=== PATIENT | female | born 1955 | race Caucasian/White ===

== ENCOUNTER 2018-10-13 15:33 | Emergency (ER) | payer OTHER ==
--- NOTE | 2018-10-13 17:05 | RAD REPORT ---
EXAM DESCRIPTION: RAD - Chest Single View - 10/13/2018 4:59 pm CLINICAL HISTORY: CHEST PAIN Chest pain. COMPARISON: CHEST SINGLE VIEW dated 07/31/2011; CHEST PA AND LAT 2 VIEW dated 05/03/2004 FINDINGS: Portable technique limits examination quality. The lungs are grossly clear. The heart is normal in size. No displaced fractures. IMPRESSION: No acute intrathoracic process suspected.
--- NOTE | 2018-10-13 17:06 | RAD REPORT ---
EXAM DESCRIPTION: CT - Head Brain Wo Cont - 10/13/2018 4:59 pm CLINICAL HISTORY: PAIN Severe headache, drowsiness COMPARISON: No comparisons TECHNIQUE: All CT scans are performed using dose optimization technique as appropriate and may inclu de automated exposure control or mA/KV adjustment according to patient size. FINDINGS: No intracranial hemorrhage, hydrocephalus or extra-axial fluid collection.No areas of brai n edema or evidence of midline shift. The paranasal sinuses and mastoids are clear. The calvarium is intact. IMPRESSION: No acute intracranial abnormality.
[2018-10-13] MEDS ORDERED: MECLIZINE HCL 12.5 MG TAB ONE (17:36)
[2018-10-13] MEDS ORDERED: NA CHLORIDE 0.9% 1,000 ML ONE (17:37)
[2018-10-13] MEDS ORDERED: ONDANSETRON 4 MG/2 ML VIAL ONE (17:37)
[2018-10-13 17:53] LABS: Absolute Lymphocytes (CBC) 1.7 K/uL (0.7-4.9); Absolute Monocytes 0.4 K/uL (0.1-1.3); Absolute Neutrophil 6.4 K/uL (1.8-8.0); Basophils % 1.2 % (0-1.3); Eosinophils % 0.3 % (0-4.4); Hematocrit 44.1 % (36.0-45.0); Lymphocytes % 19.7 % (15.3-44.8); MCH 30.2 pg (27.0-35.0); MCV 89.5 fL (80-100); MPV 8.5 fL (7.6-11.3); Monocytes % 5.1 % (3.3-12.3); RBC Red Blood Cell Count 4.93 M/uL (3.86-4.86)
[2018-10-13 18:11] LABS: ALT/SGPT 53 U/L (12-78); AST/SGOT 25 U/L (15-37); Albumin 3.6 g/dL (3.4-5.0); Alkaline Phosphatase 72 U/L (45-117); BUN Blood Urea Nitrogen 17 mg/dL (7-18); Bicarbonate 29 mmol/L (21-32); Bilirubin Direct 0.1 mg/dL (0-0.2); Bilirubin Total 0.3 mg/dL (0.2-1.0); Glucose Level 204 mg/dL (74-106); Lipase 177 U/L (73-393); Magnesium 1.9 mg/dL (1.8-2.4); NT PRO-BNP 97 pg/mL (<125); Potassium 4.8 mmol/L (3.5-5.1); Protein, Total 6.7 g/dL (6.4-8.2); Sodium Level 149 mmol/L (136-145); Troponin (Emerg Dept Use Only) < 0.02 ng/mL (0.0-0.045)
--- NOTE | 2018-10-13 19:23 | ER ---
Nurse's Notes [facility] Name: Michelle Lares Age: 63 yrs Sex: Female : 1955 Arrival Date: 10/13/2018 Time: 15:34 Bed 15 Private MD: Abhilash Roger T Diagnosis: Vomiting, unspecified Presentation: 10/13 15:53 Presenting complaint: Child states: Spider bite 2 weeks ago, urgent care lanced it and jl7 gave antibiotics. Dr. Roger prescribed more antibiotics a week ago and she took them for 4 days but stopped because they were making her vomit. Since then she has been nauseous and had some blurry vision that got worse today. Transition of care: patient was not received from another setting of care. Onset of symptoms was October 13, 2018. Risk Assessment: Do you want to hurt yourself or someone else? Patient reports no desire to harm self or others. Initial Sepsis Screen: Does the patient meet any 2 criteria? No. Patient's initial sepsis screen is negative. Does the patient have a suspected source of infection? No. Patient's initial sepsis screen is negative. Care prior to arrival: None. 15:53 Method Of Arrival: Ambulatory [facility] 15:53 Acuity: OSCAR 3 [facility] Triage Assessment: 15:59 General: Appears uncomfortable, ill, Behavior is calm, cooperative, appropriate for [facility] age. Pain: Denies pain. Neuro: Level of Consciousness is awake, alert, obeys commands, Oriented to person, place, time, situation. Cardiovascular: Patient's skin is warm and dry. Respiratory: Airway is patent Respiratory effort is even, unlabored, Respiratory pattern is regular, symmetrical. GI: Reports nausea, vomiting, Patient currently denies diarrhea. Derm: Skin is pink, warm \\T\\ dry. Historical: - Allergies: 15:59 No Known Allergies; jl7 - Home Meds: 15:59 losartan 50 mg Oral tab 1 tab [Active]; Invokana 300 mg Oral tab 1 tab once daily 7 [Active]; metformin 750 mg Oral Tb24 1 tab [Active]; Victoza 3-Jimbo subcutaneous [Active]; fenofibrate 54 mg Oral tab 1 tab once daily [Active]; duloxetine 60 mg Oral cpDR 1 cap [Active]; - PMHx: 15:59 Diabetes - NIDDM; jl7 - PSHx: 15:59 ; jl7 - Immunization history:: Adult Immunizations not up to date. - Social history:: Smoking status: Patient/guardian denies using tobacco, Patient uses Patient/guardian denies using alcohol, street drugs, The patient lives with family. - Ebola Screening: : No symptoms or risks identified at this time. - Family history:: not pertinent, pertinent for. - Hospitalizations: : No recent hospitalization is reported. Screenin:10 Abuse screen: Denies threats or abuse. Denies injuries from another. Nutritional ls4 screening: No deficits noted. Tuberculosis screening: No symptoms or risk factors identified. Fall Risk No fall in past 12 months (0 pts). No secondary diagnosis (0 pts). No IV (0 pts). Ambulatory Aid- None/Bed Rest/Nurse Assist (0 pts). Gait- Normal/Bed Rest/Wheelchair (0 pts) Mental Status- Oriented to own ability (0 pts). Total Flores Fall Scale indicates No Risk (0-24 pts). Sepsis Screening: . Infection: Patient has suspected or documented infection. Patient is currently on antibiotics that were not prescribed as prophylaxis. SIRS - Systemic Inflammatory Response Syndrome: 2 or more indicates positive screen: Patient has a negative screen for severe sepsis based on SIRS criteria. Exposure risk/Travel Screening: None identified. Assessment: 17:03 General: Appears uncomfortable, well groomed, Behavior is calm, cooperative. Pain: ls4 Denies pain. Neuro: No deficits noted. Cardiovascular: Denies chest pain, diaphoresis, fatigue, lightheadedness. Respiratory: No deficits noted. Airway is patent Respiratory effort is even, unlabored, Respiratory pattern is regular, Breath sounds are clear bilaterally. EENT:. Derm: Reports had two "bites" took antibiotics. both lesions are dime size and have no signs or symptoms of infection. no redness, no swelling or pain . Musculoskeletal: No deficits noted. 18:04 Reassessment: Patient states feeling better. Patient states symptoms have improved. ls4 19:00 Reassessment: Patient appears in no apparent distress at this time. Patient and/or jb4 family updated on plan of care and expected duration. Pain level reassessed. Patient is alert, oriented x 3, equal unlabored respirations, skin warm/dry/pink. Discussed D/c, F/u with pt, denies questions or concerns. Vital Signs: 15:59 BP 155 / 85; Pulse 87; Resp 16 S; Temp 99(O); Pulse Ox 100% on R/A; Weight 74.84 kg jl7 (R); Height 5 ft. 1 in. (154.94 cm) (R); Pain 0/10; 17:07 BP 151 / 51; Pulse 78; Resp 16; Pulse Ox 99% on R/A; Pain 0/10; ls4 18:23 BP 158 / 59; Pulse 76; Resp 16; Pulse Ox 99% ; ls4 18:38 BP 152 / 62; Pulse 77; Resp 16; Pulse Ox 99% ; ls4 19:00 BP 137 / 76; Pulse 77; Resp 18; Pulse Ox 100% on R/A; jb4 15:59 Body Mass Index 31.18 (74.84 kg, 154.94 cm) jl7 ED Course: 15:34 Patient arrived in ED. sb2 15:35 Abhilash Roger MD is Private Physician. sb2 15:56 Triage completed. jl7 15:59 Arm band placed on right wrist. jl7 16:04 Luke Marques MD is Attending Physician. ma2 16:09 Shahrzad Pro, IVETH is Primary Nurse. ls4 16:11 Patient has correct armband on for positive identification. Placed in gown. Bed in low ls4 position. Call light in reach. Side rails up X2. Pulse ox on. NIBP on. Warm blanket given. Pillow given. 16:12 No provider procedures requiring assistance completed. ls4 16:[address] kw1 16:58 CT completed. Patient tolerated procedure well. Patient moved back from CT. mw3 16:59 Magnesium Sent. ls4 16:59 PT-INR Sent. ls4 16:59 Troponin (emerg Dept Use Only) Sent. ls4 16:59 XRAY Chest (1 view) Sent. ls4 16:59 CT Head Brain wo Cont Sent. ls4 16:59 Basic Metabolic Panel Sent. ls4 16:59 CBC with Diff Sent. ls4 17:00 Creatinine for Radiology Sent. ls4 17:01 Resting quietly. ls4 17:01 Hepatic Function Sent. ls4 17:01 Lipase Sent. ls4 17:01 Initial lab(s) drawn, by tn, sent to lab. Inserted saline lock: 20 gauge in left ls4 antecubital area, using aseptic technique. Blood collected. 17:25 EKG done, by civil cadd technician. reviewed by Luke Marques MD. sm3 17:37 NT PRO-BNP Sent. ls4 19:30 IV discontinued, intact, bleeding controlled. jb4 Administered Medications: 17:10 Drug: NS 0.9% 1000 ml Route: IV; Rate: 1 bolus; Site: left antecubital; ls4 18:19 Follow up: IV Status: Completed infusion; IV Intake: 1000ml ls4 17:10 Drug: Meclizine 50 mg Route: PO; ls4 18:18 Follow up: Response: No adverse reaction ls4 17:10 Drug: Zofran 4 mg Route: IVP; Site: left antecubital; ls4 17:40 Follow up: Response: No adverse reaction; Marked relief of symptoms ls4 Intake: 18:19 IV: 1000ml; Total: 1000ml. ls4 Outcome: 19:10 Discharge ordered by . ma2 19:30 Discharged to home ambulatory, with family. jb4 19:30 Condition: stable 19:30 Discharge instructions given to patient, family, Instructed on discharge instructions, follow up and referral plans. medication usage, Demonstrated understanding of instructions, follow-up care, medications, Prescriptions given X 2. 19:38 Patient left the ED. jb4 Signatures: Cristofer Hopson, IVETH RN jb4 Ekta Camara RN RN jl7 Velvet Alexander kw1 Luke Marques MD MD ut2 Estrella Spivey 2 Carly Spicer 3 Edwina Lind 3 Shahrzad Pro RN RN ls4 Corrections: (The following items were deleted from the chart) 21:58 19:00 IV discontinued, intact, bleeding controlled, jb4 jb4
--- NOTE | 2018-10-13 19:23 | EDPHYS ---
Physician Documentation [facility] Name: Michelle Lares Age: 63 yrs Sex: Female : 1955 Arrival Date: 10/13/2018 Time: 15:34 Bed 15 Private MD: Abhilash Roger T ED Physician Luke Marques HPI: 10/13 16:53 This 63 yrs old Female presents to ER via Ambulatory with complaints of POSS ma2 DEHYDRATION. 16:53 The patient presents to the emergency department with nausea, vomiting. Onset: The ma2 symptoms/episode began/occurred gradually, 10 week(s) ago. Possible causes: unknown. Associated signs and symptoms: Pertinent negatives:. Severity of symptoms: At their worst the symptoms were moderate in the emergency department the symptoms are unchanged. The patient has not experienced similar symptoms in the past. Historical: - Allergies: 15:59 No Known Allergies; jl7 - Home Meds: 15:59 losartan 50 mg Oral tab 1 tab [Active]; Invokana 300 mg Oral tab 1 tab once daily jl7 [Active]; metformin 750 mg Oral Tb24 1 tab [Active]; Victoza 3-Jimbo subcutaneous [Active]; fenofibrate 54 mg Oral tab 1 tab once daily [Active]; duloxetine 60 mg Oral cpDR 1 cap [Active]; - PMHx: 15:59 Diabetes - NIDDM; jl7 - PSHx: 15:59 ; jl7 - Immunization history:: Adult Immunizations not up to date. - Social history:: Smoking status: Patient/guardian denies using tobacco, Patient uses Patient/guardian denies using alcohol, street drugs, The patient lives with family. - Ebola Screening: : No symptoms or risks identified at this time. - Family history:: not pertinent, pertinent for. - Hospitalizations: : No recent hospitalization is reported. ROS: 16:53 Constitutional: Negative for fever, chills, and weight loss, ENT: Negative for injury, ma2 pain, and discharge, Cardiovascular: Negative for chest pain, palpitations, and edema, Respiratory: Negative for shortness of breath, cough, wheezing, and pleuritic chest pain, Abdomen/GI: Negative for abdominal pain, nausea, diarrhea, and constipation. 16:53 Abdomen/GI: Positive for nausea and vomiting. 16:53 All other systems are negative. Exam: 16:53 Constitutional: This is a well developed, well nourished patient who is awake, alert, ma2 and in no acute distress. Chest/axilla: Normal chest wall appearance and motion. Nontender with no deformity. No lesions are appreciated. Cardiovascular: Regular rate and rhythm with a normal S1 and S2. No gallops, murmurs, or rubs. Normal PMI, no JVD. No pulse deficits. Respiratory: Lungs have equal breath sounds bilaterally, clear to auscultation and percussion. No rales, rhonchi or wheezes noted. No increased work of breathing, no retractions or nasal flaring. Abdomen/GI: Soft, non-tender, with normal bowel sounds. No distension or tympany. No guarding or rebound. No evidence of tenderness throughout. MS/ Extremity: Pulses equal, no cyanosis. Neurovascular intact. Full, normal range of motion. Neuro: Awake and alert, GCS 15, oriented to person, place, time, and situation. Cranial nerves II-XII grossly intact. Motor strength 5/5 in all extremities. Sensory grossly intact. Cerebellar exam normal. Normal gait. Vital Signs: 15:59 BP 155 / 85; Pulse 87; Resp 16 S; Temp 99(O); Pulse Ox 100% on R/A; Weight 74.84 kg jl7 (R); Height 5 ft. 1 in. (154.94 cm) (R); Pain 0/10; 17:07 BP 151 / 51; Pulse 78; Resp 16; Pulse Ox 99% on R/A; Pain 0/10; ls4 18:23 BP 158 / 59; Pulse 76; Resp 16; Pulse Ox 99% ; ls4 18:38 BP 152 / 62; Pulse 77; Resp 16; Pulse Ox 99% ; ls4 19:00 BP 137 / 76; Pulse 77; Resp 18; Pulse Ox 100% on R/A; jb4 15:59 Body Mass Index 31.18 (74.84 kg, 154.94 cm) jl7 MDM: 16:04 Patient medically screened. ma2 16:53 Differential diagnosis: Nonspecific abd pain, pancreatitis, viral gastroenteritis, ma2 gastroenteritis. 19:10 Data reviewed: vital signs, nurses notes, EMS record, residential records, lab test ma2 result(s), radiologic studies. Counseling: I had a detailed discussion with the patient and/or guardian regarding: the historical points, exam findings, and any diagnostic results supporting the discharge/admit diagnosis, the presence of at least one elevated blood pressure reading (>120/80) during this emergency department visit, the need for outpatient follow up. Response to treatment: the patient's symptoms have resolved after treatment. 10/13 16:40 Order name: Basic Metabolic Panel [facility] 10/13 16:40 Order name: CBC with Diff [facility] 10/13 16:40 Order name: Creatinine for Radiology [facility] 10/13 16:40 Order name: Hepatic Function [facility] 10/13 16:40 Order name: Lipase [facility] 10/13 16:40 Order name: Magnesium [facility] 10/13 16:40 Order name: NT PRO-BNP [facility] 10/13 16:40 Order name: PT-INR [facility] 10/13 16:40 Order name: Troponin (emerg Dept Use Only) [facility] 10/13 17:55 Order name: CBC with Automated Diff; Complete Time: 18:00 EDID 10/13 17:57 Order name: Protime (+INR); Complete Time: 18:00 EDID 10/13 18:12 Order name: Basic Metabolic Panel; Complete Time: 18:41 EDMS 10/13 18:12 Order name: Liver (Hepatic) Function; Complete Time: 18:41 EDMS 10/13 18:12 Order name: Troponin (Emerg Dept Use Only); Complete Time: 18:41 EDMS 10/13 16:40 Order name: IV Saline Lock; Complete Time: 17:01 [facility] 10/13 16:40 Order name: Labs collected and sent; Complete Time: 17:37 [facility] 10/13 16:40 Order name: CT Head Brain wo Cont [facility] 10/13 16:40 Order name: XRAY Chest (1 view) [facility] 10/13 16:40 Order name: EKG; Complete Time: 16:41 [facility] 10/13 16:40 Order name: Cardiac monitoring; Complete Time: 16:48 [facility] 10/13 16:40 Order name: EKG - Nurse/Tech; Complete Time: 18:18 [facility] 10/13 17:06 Order name: RAD; Complete Time: 18:00 EDMS 10/13 17:07 Order name: CT; Complete Time: 18:00 EDID 10/13 18:12 Order name: NT PRO-BNP; Complete Time: 18:41 EDID 10/13 18:12 Order name: Magnesium; Complete Time: 18:41 EDID 10/13 18:12 Order name: Lipase; Complete Time: 18:41 EDID 10/13 18:17 Order name: Creatinine (Radiology Only); Complete Time: 18:41 EDID 10/13 16:40 Order name: O2 Per Protocol; Complete Time: 16:48 ky2 10/13 16:40 Order name: O2 Sat Monitoring; Complete Time: 16:48 [facility] 10/13 17:15 Order name: Labs - recollect needed; Complete Time: 17:25 bd Administered Medications: 17:10 Drug: NS 0.9% 1000 ml Route: IV; Rate: 1 bolus; Site: left antecubital; ls4 18:19 Follow up: IV Status: Completed infusion; IV Intake: 1000ml ls4 17:10 Drug: Meclizine 50 mg Route: PO; ls4 18:18 Follow up: Response: No adverse reaction ls4 17:10 Drug: Zofran 4 mg Route: IVP; Site: left antecubital; ls4 17:40 Follow up: Response: No adverse reaction; Marked relief of symptoms ls4 Disposition: 10/13/18 19:10 Discharged to Home. Impression: Vomiting, unspecified. - Condition is Stable. - Discharge Instructions: Benign Positional Vertigo. - Prescriptions for Meclizine 25 mg Oral Tablet - take 1 tablet by ORAL route every 8 hours As needed; 30 tablet. Zofran 4 mg Oral Tablet - take 1 tablet by ORAL route every 12 hours As needed; 6 tablet. - Medication Reconciliation Form, Thank You Letter, Antibiotic Education, Prescription Opioid Use form. - Follow up: Private Physician; When: Tomorrow; Reason: Continuance of care. Signatures: Dispatcher [employer] EDID RosalinatoriRocio James, RN RN jb4 Ekta Camara RN RN jl7 Luke Marques MD MD ma2 Shahrzad Pro RN RN ls4 Corrections: (The following items were deleted from the chart) 19:38 19:10 10/13/2018 19:10 Discharged to Home. Impression: Vomiting, unspecified. Condition jb4 is Stable. Forms are Medication Reconciliation Form, Thank You Letter, Antibiotic Education, Prescription Opioid Use. Follow up: Private Physician; When: Tomorrow; Reason: Continuance of care. ma2
--- NOTE | 2018-10-14 05:52 | EKG ---
Test Date: 2018-10-13 Test Time: 17:16:26 Aviculturist: VICTOR M MEASUREMENT RESULTS: Intervals: Rate: 78 NV: 146 QRSD: 80 QT: 386 QTc: 440 [place]: P: 40 NV: 146 QRS: 32 T: 25 INTERPRETIVE STATEMENTS: Normal sinus rhythm Nonspecific T wave abnormality Abnormal ECG Compared to ECG 06/04/2017 11:27:55 T-wave abnormality now present Electronically Signed On 10-14-18 05:51:41 ROLLER PAINTER by Nick Claire
== END 2018-10-13 19:38 | disposition home or self-care (01) ==
LOC: ER 15:33
DX: R11.2 Nausea with vomiting, unspecified (principal); E11.9 Type 2 diabetes mellitus without complications
CPT/HCPCS: 36415; 70450; 71045; 80048; 80076; 83690; 83735; 83880; 84484; 85025; 85610; 93005; 96361; 96374; 99285; J2405; J7030

== ENCOUNTER 2022-05-30 17:46 | Emergency (ER) | payer OTHER ==
[2022-05-30] MEDS ORDERED: ONDANSETRON 4 MG/2 ML VIAL ONE (19:55)
[2022-05-30] MEDS ORDERED: NA CHLORIDE 0.9% 1,000 ML ONE (19:56)
[2022-05-30] MEDS ORDERED: FAMOTIDINE 20 MG/2 ML VIAL IV ONE (19:56)
[2022-05-30 20:30] LABS: Absolute Lymphocytes (CBC) 0.6 K/uL (0.7-4.9); Hematocrit 46.2 % (36.0-45.0); Lymphocytes % 10.9 % (15.3-44.8); MCV 85.1 fL (80-100); MPV 8.6 fL (7.6-11.3); RBC Red Blood Cell Count 5.43 M/uL (3.86-4.86)
[2022-05-30 21:15] LABS: Albumin 3.1 g/dL (3.4-5.0); Bilirubin Total 1.1 mg/dL (0.2-1.0); Protein, Total 7.6 g/dL (6.4-8.2)
--- NOTE | 2022-05-31 00:17 | ER ---
Nurse's Notes [facility] Name: Michelle Lares Age: 66 yrs Sex: Female : 1955 Arrival Date: 05/30/2022 Time: 17:49 Bed 17 Private MD: Diagnosis: Nausea with vomiting, unspecified;Diarrhea, unspecified Presentation: 05/30 18:49 Chief complaint: Patient states: Tested positive for COVID on May 21. Pt reports ss that since then she has had ongoing N/V/D and feels generally weak. Coronavirus screen: Client presents with at least one sign or symptom that may indicate coronavirus-19. Ebola Screen: Patient denies exposure to infectious person. Patient denies travel to an Ebola-affected area in the 21 days before illness onset. Initial Sepsis Screen: Does the patient meet any 2 criteria? No. Patient's initial sepsis screen is negative. Does the patient have a suspected source of infection? No. Patient's initial sepsis screen is negative. Risk Assessment: Do you want to hurt yourself or someone else? Patient reports no desire to harm self or others. Onset of symptoms was May 21, 2022. 18:49 Method Of Arrival: Wheelchair ss 18:49 Acuity: OSCAR 3 ss Historical: - Allergies: 18:51 No Known Allergies; ss - PMHx: 18:51 Diabetes - NIDDM; ss - Immunization history:: Client reports having NOT received the Covid vaccine. - Social history:: Smoking status: Patient denies any tobacco usage or history of. Screenin/08 00:35 Abuse screen: Denies threats or abuse. Denies injuries from another. Nutritional sm5 screening: No deficits noted. Tuberculosis screening: No symptoms or risk factors identified. Fall Risk None identified. Assessment: 05/30 19:30 General: Appears uncomfortable, Behavior is cooperative. Pain: Complains of pain in sm5 abdomen. Neuro: Level of Consciousness is awake, alert, obeys commands, Oriented to person, place, time, situation. Cardiovascular: Capillary refill < 3 seconds Patient's skin is warm and dry. Respiratory: Airway is patent Trachea midline Respiratory effort is even, unlabored. GI: Abdomen is flat, non-distended, Reports nausea, vomiting. 20:30 Reassessment: No changes from previously documented assessment. Patient and/or family sm5 updated on plan of care and expected duration. Pain level reassessed. 21:30 Reassessment: No changes from previously documented assessment. Patient is alert, sm5 oriented x 3, equal unlabored respirations, skin warm/dry/pink. 23:30 Reassessment: No changes from previously documented assessment. sm5 05/31 00:34 Reassessment: pt given water and gatorade to drink, pt able to tolerate fluids, denies sm5 nausea/vomiting. Vital Signs: 05/30 18:49 BP 136 / 69; Pulse 96; Resp 16; Temp 98.0(TE); Pulse Ox 97% on R/A; Weight 60.78 kg; ss Height 5 ft. 0 in. (152.40 cm); Pain 0/10; 05/31 00:35 BP 131 / 65; Pulse 88; Resp 17; Pulse Ox 99% on R/A; sm5 05/30 18:49 Body Mass Index 26.17 (60.78 kg, 152.40 cm) ED Course: 05/30 17:49 Patient arrived in ED. rg4 17:52 Bishop Jha PA is PHCP. [facility] 17:52 Chris Min DO is Attending Physician. m 18:51 Triage completed. ss 18:51 Arm band placed on right wrist. ss 19:16 Florina Hayden, IVETH is Primary Nurse. sm5 19:41 Inserted saline lock: 24 gauge in right forearm, using aseptic technique. Blood ds4 collected. Missed attempt(s): 24 gauge in right forearm. 20:16 Initial lab(s) drawn, by tn, sent to lab. Inserted saline lock: 20 gauge in right tw5 antecubital area, using aseptic technique. Blood collected. Ultrasound guided IV. 20:25 PHCP role handed off by Bishop Jha PA cp 20:25 Alfredo Salazar PA is PHCP. cp 22:11 CT Abd/Pelvis - IV Contrast Only In Process Unspecified. EDMS 05/31 00:35 Patient has correct armband on for positive identification. Bed in low position. Call sm5 light in reach. Side rails up X2. 00:35 No provider procedures requiring assistance completed. IV discontinued, intact, sm5 bleeding controlled, No redness/swelling at site. Pressure dressing applied. Administered Medications: 05/30 20:30 Drug: NS 0.9% 1000 ml Route: IV; Rate: 1 bolus; Site: right antecubital; 5 21:30 Follow up: IV Status: Completed infusion; IV Intake: 1000ml 5 20:30 Drug: Pepcid (famotidine) 20 mg Route: IVP; Site: right antecubital; sm5 05/31 00:36 Follow up: Response: No adverse reaction sm5 05/30 20:30 Drug: Zofran (Ondansetron) 4 mg Route: IVP; Site: right antecubital; sm5 05/31 00:36 Follow up: Response: Nausea is decreased sm5 Medication: 00:35 VIS not applicable for this client. sm5 Intake: 05/30 21:30 IV: 1000ml; Total: 1000ml. 5 Outcome: 05/31 00:17 Discharge ordered by MD. cp 00:35 Discharged to home via wheelchair, with family. 5 00:35 Condition: stable 00:35 Discharge instructions given to patient, family, Instructed on discharge instructions, follow up and referral plans. medication usage, Demonstrated understanding of instructions, follow-up care, medications, Prescriptions given X 2. 00:36 Patient left the ED. 5 Signatures: Dispatcher [employer] EDMS Bishop Jha PA PA jmm Smirch, Shelby, IVETH RN Rudy García ds4 Alfredo Salazar PA PA cp Garcia, Rubi rg4 Caitlyn Man tw5 Florina Hayden RN RN 5
--- NOTE | 2022-05-31 00:18 | EDPHYS ---
Physician Documentation [facility] Name: Michelle Lares Age: 66 yrs Sex: Female : 1955 Arrival Date: 05/30/2022 Time: 17:49 Bed 17 Private MD: ED Physician Chris Min HPI: 05/30 18:05 This 66 yrs old Female presents to ER via Wheelchair with complaints of Dehydration, jmm Vomiting/Diarrhea. 20:15 The patient presents to the emergency department with nausea, vomiting. Onset: The jmm symptoms/episode began/occurred gradually, 2 week(s) ago. Possible causes: unknown. The symptoms are aggravated by nothing. The symptoms are alleviated by nothing. This is a 66 year old female with a history fo dm, that presents to the ED with complaints of ongoing vomiting, diarrhea beginning after being diagnosed with covid. Patient received iv fluids yesterday with no relief today. . Historical: - Allergies: 18:51 No Known Allergies; ss - PMHx: 18:51 Diabetes - NIDDM; ss - Immunization history:: Client reports having NOT received the Covid vaccine. - Social history:: Smoking status: Patient denies any tobacco usage or history of. ROS: 20:15 Constitutional: Negative for fever, chills, and weight loss, Cardiovascular: Negative jmm for chest pain, palpitations, and edema, Respiratory: Negative for shortness of breath, cough, wheezing, and pleuritic chest pain. 20:15 Abdomen/GI: Positive for nausea and vomiting, vomiting, diarrhea. 20:15 Neuro: Positive for weakness. Exam: 20:15 Constitutional: This is a well developed, well nourished patient who is awake, alert, jmm and in no acute distress. Head/Face: atraumatic. Eyes: EOMI, no conjunctival erythema appreciated ENT: Moist Mucus Membranes Neck: Trachea midline, Supple Chest/axilla: Normal chest wall appearance and motion. Cardiovascular: Regular rate and rhythm. No edema appreciated Respiratory: Normal respirations, no respiratory distress appreciated 20:15 Back: Normal ROM Skin: General appearance color normal MS/ Extremity: Moves all extremities, no obvious deformities appreciated, no edema noted to the lower extremities Neuro: Awake and alert Psych: Behavior is normal, Mood is normal, Patient is cooperative and pleasant 20:15 Abdomen/GI: Inspection: abdomen appears normal, Bowel sounds: normal, Palpation: abdomen is soft and non-tender, in all quadrants. Vital Signs: 18:49 BP 136 / 69; Pulse 96; Resp 16; Temp 98.0(TE); Pulse Ox 97% on R/A; Weight 60.78 kg; ss Height 5 ft. 0 in. (152.40 cm); Pain 0/10; 05/31 00:35 BP 131 / 65; Pulse 88; Resp 17; Pulse Ox 99% on R/A; sm5 05/30 18:49 Body Mass Index 26.17 (60.78 kg, 152.40 cm) ss MDM: 05/30 18:05 Patient medically screened. [facility] 05/31 00:10 Data reviewed: vital signs, nurses notes, lab test result(s), radiologic studies, CT cp scan. 00:10 Differential diagnosis: Nonspecific abd pain, gastritis, cholecystitis, pancreatitis, cp appendicitis, diverticulitis, viral gastroenteritis, gastroenteritis. Counseling: I had a detailed discussion with the patient and/or guardian regarding: the historical points, exam findings, and any diagnostic results supporting the discharge/admit diagnosis, lab results, radiology results, the need for outpatient follow up, a family practitioner, to return to the emergency department if symptoms worsen or persist or if there are any questions or concerns that arise at home. Response to treatment: the patient's symptoms have markedly improved after treatment, VSS. Nausea markedly improved and vomiting resolved. Will discharge to home for continued monitoring. 05/30 18:05 Order name: CBC with Diff; Complete Time: 21:18 [facility] 05/30 21:18 Interpretation: Normal except: RBC 5.43; HGB 15.7; HCT 46.2; MCV 85.1; CORNELIO% 77.7; LYM% cp 10.9; LYMA 0.6. 05/30 18:05 Order name: CMP; Complete Time: 21:18 [facility] 05/30 21:18 Interpretation: Normal except: GLUC 156. cp 05/30 18:05 Order name: Lipase; Complete Time: 21:18 [facility] 05/30 20:18 Order name: CT Abd/Pelvis - IV Contrast Only [facility] 05/30 18:05 Order name: IV Saline Lock; Complete Time: 19:41 [facility] 05/30 18:05 Order name: Labs collected and sent; Complete Time: 21:20 [facility] 05/30 23:59 Order name: PO challenge; Complete Time: 00:11 cp Administered Medications: 05/30 20:30 Drug: NS 0.9% 1000 ml Route: IV; Rate: 1 bolus; Site: right antecubital; [facility] 21:30 Follow up: IV Status: Completed infusion; IV Intake: 1000ml [facility] 20:30 Drug: Pepcid (famotidine) 20 mg Route: IVP; Site: right antecubital; 5 05/31 00:36 Follow up: Response: No adverse reaction [facility] 05/30 20:30 Drug: Zofran (Ondansetron) 4 mg Route: IVP; Site: right antecubital; [facility] 05/31 00:36 Follow up: Response: Nausea is decreased [facility] Disposition: 14:10 Co-signature as Attending Physician, Chris Min DO I was immediately available on-site ms3 in the Emergency Department for consultation in the care of the patient.. Disposition Summary: 05/31/22 00:17 Discharge Ordered Location: Home cp Problem: an ongoing problem cp Symptoms: have improved cp Condition: Stable cp Diagnosis - Nausea with vomiting, unspecified cp - Diarrhea, unspecified cp Followup: cp - With: Private Physician - When: 1 - 2 days - Reason: Recheck today's complaints Discharge Instructions: - Discharge Summary Sheet cp - Food Choices to Help Relieve Diarrhea, Adult cp - Diarrhea, Adult cp - Nausea and Vomiting, Adult cp Forms: - Medication Reconciliation Form cp - Thank You Letter cp - Antibiotic Education cp - Prescription Opioid Use cp Prescriptions: - Pepcid 20 mg Oral Tablet - take 1 tablet by ORAL route every 12 hours for 10 days; 20 tablet; Refills: 0, cp Product Selection Permitted - promethazine 25 mg Oral Tablet - take 1 tablet by ORAL route every 6 hours As needed; 20 tablet; Refills: 0, cp Product Selection Permitted Signatures: Dispatcher [employer] Bishop Pablo PA PA jmm Smirch, Shelby, RN RN Alfredo Wade PA PA cp Sims, Marcus, DO DO ms3 Florina Hayden RN RN 5
[2022-05-31 01:55] VITALS: TEMP 98
[2022-05-31 01:57] VITALS: BP 131/65; O2SAT 99
--- NOTE | 2022-05-31 11:06 | RAD REPORT ---
EXAM DESCRIPTION: Abdomen Pelvis W Contrast 05/30/2022 11:11 PM CDT CLINICAL HISTORY: 66 years, Female, abdominal pain, vomiting COMPARISON: None. TECHNIQUE: Contrast-enhanced images of the abdomen and pelvis were performed utilizing 5 mm slice th ickness at 5 mm interval reconstruction from the lung bases to the ischial tuberosities after the adm inistration of IV contrast. In addition multiplanar reformats in the coronal and sagittal plane were obtained and reviewed. This exam was performed according to our departmental dose-optimization protocol, which includes auto mated exposure control, adjustment of the mA and/or kV according to patient size and/or use of iterat adonis reconstruction technique. FINDINGS: The lung bases demonstrated presence of subpleural areas of groundglass opacities posterio r segment lower lobes lateral inferior linear segment. The liver, gallbladder, pancreas, spleen and adrenal glands demonstrate to be unremarkable, no focal lesions are noted. The kidneys demonstrate normal uptake of contrast media. No evidence for nephrolithiasis and/or hydro nephrosis. Grossly the unopacified stomach, small bowel and large bowel demonstrate to be within normal limits. There is no evidence for bowel dilatation and/or free air. Minimal diverticulosis transverse colon and left site colon. The urinary bladder demonstrate to be unremarkable. The uterus demonstrate to be within normal limi ts. Normal bilateral adnexal structures. The aorta demonstrate atherosclerotic disease extending in to the aortic bifurcation. There is decrease caliber of the common iliac arteries/aortic bifurcation. There is no retroperitoneal lymphadenopathy. There is no evidence for ascites/or significant emely l fluid collections. The rest of the soft tissue and bony structures are within normal limits. Small left inguinal hernia containing omentum IMPRESSION: No acute intra-abdominal process. Minimal diverticulosis without evidence for acute diverticulitis. Atherosclerotic disease of the aorta with decrease caliber of the common iliac arteries/aortic bifurc ation. Commonly reported imaging features of COVID-19 pneumonia are present. Other processes such as influen za pneumonia and organizing pneumonia, as can be seen with drug toxicity and connective tissue diseas e, can cause a similar imaging pattern. Electronically signed by: Alex Poole MD 05/30/2022 11:15 PM CDT Due to temporary technical issues with the PACS/Fluency reporting system, reports are being signed by the in house radiologists without review as a courtesy to insure prompt reporting. The interpreting radiologist is fully responsible for the content of the report.
== END 2022-05-31 00:36 | disposition home or self-care (01) ==
LOC: ER 17:46
DX: R11.2 Nausea with vomiting, unspecified (principal); R19.7 Diarrhea, unspecified; R53.1 Weakness; E11.9 Type 2 diabetes mellitus without complications; Z86.16 Personal history of COVID-19
CPT/HCPCS: 85025; 36415; 83690; 80053; 74177; Q9967; J7030; J2405; J3490